=== PATIENT | female | born 1985 | race Caucasian/White ===

== ENCOUNTER 2020-03-30 20:49 | Inpatient (IN) | payer MEDICAID ==
[~2020-03-30] VITALS: Ht 160 cm; Wt 91.6 kg
[2020-03-30 22:31] VITALS: BP_SYST 139
[2020-03-30 23:17] LABS: BASOPHILS # (AUTO) 0.1 K/uL (0.0-0.2); BASOPHILS % (AUTO) 1.4 % (0.0-2.0); EOSINOPHILS # (AUTO) 0.1 K/uL (0.0-0.4); EOSINOPHILS % (AUTO) 1.6 % (0.0-4.0); HEMATOCRIT 28.3 % (36-48); HEMOGLOBIN 8.6 g/dL (12.0-16.0); LYMPHOCYTES # (AUTO) 1.1 K/uL (1.0-5.5); LYMPHOCYTES % (AUTO) 20.2 % (20.5-51.5); MEAN CORPUSCULAR HEMOGLOBIN 21 pg (27-31); MEAN CORPUSCULAR HGB CONC 30 % (32-36); MEAN CORPUSCULAR VOLUME 68 fL (79.0-98.0); MONOCYTES # (AUTO) 0.6 K/uL (0.0-1.0); NEUTROPHILS # (AUTO) 3.5 K/uL (1.8-7.7); NEUTROPHILS % (AUTO) 64.8 % (40.0-70.0); PLATELET COUNT (AUTO) 236 K/uL (130-430); RED BLOOD CELL COUNT(AUTO) 4.16 MIL/uL (4.2-6.2); RED CELL DISTRIBUTION WIDTH 21.5 % (9.0-15.0); WHITE BLOOD COUNT (AUTO) 5.4 K/uL (4.8-10.8)
--- NOTE | 2020-03-30 23:28 | NUR ---
Patient to ER HALLWAY BED to gown for evaluation. Side rails up.
[2020-03-30 23:32] LABS: CALCIUM 8.1 mg/dL (8.4-11.0); CREATININE 0.74 mg/dL (0.55-1.30); POTASSIUM 3.4 mmol/L (3.5-5.1)
[2020-03-30 23:43] LABS: ALBUMIN 3.6 g/dL (3.4-4.8); TOTAL BILIRUBIN 0.2 mg/dL (0.0-1.0)
--- NOTE | 2020-03-31 | NUR ---
Pt BIB ambulance C/O RT ankle and leg pain. Pt reports drinking at approximately 1600 this afternoon, walked to a bus stop and loss conciousness. Pt woke up with RT ankle and lef pain and swelling. Could not recall the injury. 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 Denies head, neck, or back pain, CP, SOB, fever or any other symptoms at this time.
--- NOTE | 2020-03-31 00:35 | NUR ---
PATIENT RETURNED FROM CT SCAN.
--- NOTE | 2020-03-31 01:30 | NUR ---
Pt is resting in [facility], no acute distress noted at this time. Will continue to monitor.
--- NOTE | 2020-03-31 02:30 | NUR ---
Pt is resting in [facility] [place] no acute distress noted at this time. Will continue to monitor.
[2020-03-31] MEDS ORDERED: KETOROLAC TROMETHAMINE 30 MG VIAL IVP ONE (02:45)
--- NOTE | 2020-03-31 03:10 | NUR ---
Pt has been medicated with morphine IVP for pain, will continue to monitor.
[2020-03-31] MEDS: MORPHINE 2 MG/ML INJ. SYRINGE IVP PRN ×4 (03:14→17:01)
[2020-03-31] MEDS ORDERED: MORPHINE 2 MG/ML INJ. SYRINGE IVP ONE (04:30)
[2020-03-31] MEDS: ONDANSETRON HCL 4 MG/2 ML VIAL IVP PRN ×2 (04:50→20:33)
--- NOTE | 2020-03-31 04:50 | NUR ---
Pt given additional Morphine IVP for pain, will continue to monitor.
--- NOTE | 2020-03-31 05:00 | NUR ---
Pt has been provided ice pack for comfort.
[2020-03-31] MEDS: D5/0.45 NS 1,000 ML IV SCH ×2 (06:10→23:39)
--- NOTE | 2020-03-31 06:30 | NUR ---
Pt is sleeping in bed, no acute distress noted at this time. Will continue to monitor.
--- NOTE | 2020-03-31 07:44 | NUR ---
Patient will be admitted to care of Dr. Avila. Admitted to med surg unit. Will go to room 101A. Belongings list completed. Complete and up to date summary report printed. SBAR report to be given at bedside with opportunity for questions.
--- NOTE | 2020-03-31 08:00 | NUR ---
Pt transferred to bed without incident, report given to Nahum for continuation of care.
[2020-03-31 08:27] VITALS: BP_SYST 125
--- NOTE | 2020-03-31 10:21 | NUR ---
Case mgt: Pt has no orthopedic consult ordered for ankle fx.Pt has [facility],--S/W fire marshal Chona, she will f/u with Dr. Avila re: ortho consult-- RN
[2020-03-31 10:31] VITALS: BP_SYST 132
[2020-03-31 12:06] VITALS: BP_SYST 144
--- NOTE | 2020-03-31 16:02 | NUR ---
Ortho consult called: for Dr. Bonilla, regarding fx, ordered by Dr. Avila, spoke with
[2020-03-31 16:40] VITALS: BP_SYST 125
--- NOTE | 2020-03-31 18:58 | NUR ---
CONSULT CALL TO DOCTOR TEODORO. SPOKE WITH KENNA. HANDOFF TO NIGHT TEAM REGISTERED NURSE. ABIGAIL PEREZ RN
--- NOTE | 2020-03-31 19:30 | NUR ---
Opening notes Received report. Patient is resting in bed, no signs of distress noted. Breathing even and unlabored. Patient complaining of pain to right leg. Will inform MD. IV patent and intact, infusing fluids. Call light with the patient. Safety precautions in place.
[2020-03-31 20:00] VITALS: BP_SYST 153
[2020-03-31] MEDS: MORPHINE 4 MG/ML INJ. SYRINGE IVP PRN (20:26)
--- NOTE | 2020-03-31 20:30 | NUR ---
Medications patient given prn pain medication. Educated the action and side effects of morphine. Patient verbalized understanding and tolerated well. No signs of adverse effects noted. No other needs. Call light with the patient. Safety precautions in place.
--- NOTE | 2020-03-31 22:00 | NUR ---
RN rounds Patient resting in bed, no signs of distress noted. Breathing even and unlabored, no complaints of pain. Patient assisted on to bed dowling. Patient urinated. Hygiene care provided. Ice packs applied to right ankle. No other needs. Call light with the patient. Safety precautions in place.
--- NOTE | 2020-04-01 | NUR ---
RN rounds Patient resting in bed, no signs of distress noted. Breathing even and unlabored. IVF infusing well. Patient requesting pain medication, will medicate patient. No other needs. Call light with the patient. Safety precautions in place.
[2020-04-01] MEDS: ONDANSETRON HCL 4 MG/2 ML VIAL IVP PRN ×2 (00:32→04:41)
[2020-04-01] MEDS: MORPHINE 4 MG/ML INJ. SYRINGE IVP PRN ×6 (00:33→21:32)
[2020-04-01 01:17] VITALS: BP_SYST 145
[2020-04-01] MEDS ORDERED: LORazepam 2 MG/ML VIAL IVP ONE (01:45)
--- NOTE | 2020-04-01 01:45 | NUR ---
Restless Patient feeling restless and anxious and requesting Ativan. Informed Dr. Avila. New orders received for Ativan 1 mg IV once. Ativan given. Educated the action and side effects of medication. Patient verbalized understanding and tolerated well. No adverse effects noted. Call light with the patient. safety precautions in place.
--- NOTE | 2020-04-01 04:45 | NUR ---
RN rounds Patient resting in bed, no signs of distress noted. Breathing even and unlabored. Patient states the Ativan helped her become less anxious, but did not help her sleep. Patient complains of pain. PRN Morphine given. Educated the action and side effects. Patient verbalized understanding and tolerated well. No adverse effects noted. MRSA swab collected and sent to lab. No other needs. call light with the patient. Safety precautions in place.
[2020-04-01 06:18] VITALS: BP_SYST 145
--- NOTE | 2020-04-01 06:46 | NUR ---
Closing notes Patient is resting in bed, no signs of distress noted. Breathing even and unlabored on room air. No complaints of pain. IV patent and intact, infusing fluids. Patient has been NPO since midnight. All needs met throughout the shift. Call light with the patient. Safety precautions in place. Will endorse care to day shift RN.
--- NOTE | 2020-04-01 07:25 | NUR ---
AM ROUNDS: PATIENT ON THE BED.AWAKE,ALERT AND ORIENTED X4. RIGHT FOOT ANKLE SWOLLEN,REDNESS WITH SMALL ABRASION,DRY.NOTHING BY MOUTH ORDERED. CALL LIGHT WITH IN REACH. BED LOCKED AT LOWEST POSITION. CONDITION GUARDED.
[2020-04-01 08:13] LABS: PROTHROMBIN TIME 10.5 SECS (9.5-12.5)
[2020-04-01 08:23] LABS: HCG,QUAL RESULT NEGATIVE (NEGATIVE)
[2020-04-01 08:27] LABS: BILIRUBIN,URINE NEGATIVE (NEGATIVE); BLOOD, URINE NEGATIVE (NEGATIVE); CLARITY/URINE CLEAR (CLEAR); COLOR,URINE YELLOW (YELLOW); GLUCOSE,URINE NEGATIVE (NEGATIVE); KETONES,URINE NEGATIVE (NEGATIVE); LEUKOCYTE ESTERASE ,URINE NEGATIVE (NEGATIVE); NITRITE, URINE NEGATIVE (NEGATIVE); PH,URINE 6.5 (5.0-8.0); PROTEIN URINE NEGATIVE (NEGATIVE); UROBILINOGEN,URINE 0.2 (0.2-1.0)
--- NOTE | 2020-04-01 08:50 | NUR ---
PAIN MEDS: C/O RIGHT ANKLE PAIN AND DUE IV PAIN MEDS GIVEN PER REQUEST. NO ADVERSE REACTIONS NOTED.
[2020-04-01 12:07] VITALS: BP_SYST 121
--- NOTE | 2020-04-01 12:45 | NUR ---
Pain Meds: C/o of right ankle pain and due iv morphine given per request. No problem.
[2020-04-01 16:03] VITALS: BP_SYST 122
--- NOTE | 2020-04-01 17:20 | NUR ---
ORTHO CALLED: SPOKE WITH DR VALERIO AND INFORMED HIM ,ADM ATTEMPTED TO FAXED SEAN BUT DID NOT GO THROUGH.PER ELDON ADM,COPY OF SEAN WILL BE PLACED AT THE PATIENT'S CHART TO BE SIGN BY ORTHO SURGEON AND DR VALERIO AGREED TO SIGN THE SEAN.
[2020-04-01] MEDS: D5/0.45 NS 1,000 ML IV SCH (17:25)
--- NOTE | 2020-04-01 19:00 | NUR ---
CLOSING NOTES: ENDORSED TO NIGHT NURSE PATIENT IN STABLE CONDITION. RIGHT ANKLE ELEVATED WITH PILLOW. IV FLUIDS RUNNING AT RIGHT AC INTACT. CALL LIGHT WITH IN REACH. BED LOCKED AT LOWEST POSITION. CONDITION GUARDED.
--- NOTE | 2020-04-01 19:20 | NUR ---
OPENING NOTE PATIENT AWAKE, AOX4. NO SIGNS OF RESPIRATORY DISTRESS NOTED. BREATHING EVEN AND UNLABORED. ON ROOM AIR TOLERATING WELL, O2 SATURATION OF 100%. DENIES PAIN AND DISCOMFORT AT THIS TIME BUT VERBALIZED THE NEED OF PAIN MEDICATION Q4H, HER FRACTURE IN LEGS NEEDS TO BE MANAGE. RIGHT ANKLE IS ELEVATED AT THIS TIME. IVF INFUSING WELL,PATENCY NOTED. CALL LIGHT WITHIN REACH, PATIENT WAS EDUCATED TO USE CALL LIGHT WHEN ASSISTANCE IS NEEDED, PATIENT VERBALIZED UNDERSTANDING. BED LOCKED AND IN LOWEST POSITION. BED ALARM ON. SAFETY PRECAUTIONS IN PLACE. WILL CONTINUE TO MONITOR PATIENT.
[2020-04-01 20:00] VITALS: BP_SYST 145
--- NOTE | 2020-04-01 21:21 | NUR ---
PAIN PATIENT VERBALIZED 7/10 ANKLE PAIN, PAIN MEDICATION GIVEN AT THIS TIME PER ORDER. NO SIGNS OF RESPIRATORY DISTRESS NOTED. IVF INFUSING WELL. CALL LIGHT WITHIN REACH. SAFETY PRECAUTION IN PLACE. WILL CONTINUE TO MONITOR PATIENT
--- NOTE | 2020-04-01 23:30 | NUR ---
RN ROUNDS/BED REEVES PATIENT ASSISTED TO BED REEVES, PATIENT VOIDED. NO SIGNS OF RESPIRATORY DISTRESS AND DISCOMFORT NOTED. DENIES PAIN AT THIS TIME. ON ROOM AIR, TOLERATING WELL. CALL LIGHT WITHIN REACH. SAFETY PRECAUTIONS IN PLACE. WILL CONTINUE TO MONITOR PATIENT
[2020-04-02 01:31] VITALS: BP_SYST 127
[2020-04-02] MEDS: MORPHINE 4 MG/ML INJ. SYRINGE IVP PRN ×3 (02:33→13:22)
--- NOTE | 2020-04-02 02:33 | NUR ---
PAIN PATIENT VERBALIZED 7/10 ANKLE PAIN, PAIN MEDICATION GIVEN AT THIS TIME PER ORDER. NO SIGNS OF RESPIRATORY DISTRESS NOTED. IVF INFUSING WELL. CALL LIGHT WITHIN REACH. SAFETY PRECAUTION IN PLACE. WILL CONTINUE TO MONITOR AND RE ASSESS PATIENT
--- NOTE | 2020-04-02 04:10 | NUR ---
RN ROUNDS PATIENT ASLEEP AT THIS TIME. NO SIGNS OF RESPIRATORY DISTRESS AND DISCOMFORT NOTED. BREATHING EVEN AND UNLABORED. ON ROOM AIR TOLERATING WELL. IVF INFUSING WELL. CALL LIGHT WITHIN REACH. SAFETY PRECAUTIONS IN PLACE. WILL CONTINUE TO MONITOR PATIENT.
--- NOTE | 2020-04-02 06:31 | NUR ---
CLOSING NOTE PATIENT ASLEEP AT THIS TIME. NO SIGNS OF RESPIRATORY DISTRESS AND DISCOMFORT NOTED. BREATHING EVEN AND UNLABORED. ON ROOM AIR TOLERATING WELL. IVF INFUSING WELL, PATENCY NOTED. RIGHT LEG WITH ICED PACKED. CALL LIGHT WITHIN REACH. BED LOCKED AND IN LOWEST POSITION. SAFETY PRECAUTIONS IN PLACE. ALL NEEDS MET THROUGHOUT THE SHIFT. WILL CONTINUE TO MONITOR UNTIL ENDORSE TO ONCOMING SHIFT NURSE FOR CONTINUITY OF CARE.
--- NOTE | 2020-04-02 06:53 | NUR ---
Nutrition Update [place] Scale 17 noted. Pt admitted for Syncope and Fracture Diet: Regular BMI: 35.8 kg/m2 RD to follow per nutrition care standards.
[2020-04-02 08:25] VITALS: BP_SYST 136
--- NOTE | 2020-04-02 08:35 | NUR ---
INITIAL ROUNDS Received pt AAOx4, no s/s resp distress, c/o pain 9 to right ankle-noted right foot on a temp splint with ice packs in place, right foot elevated. Pt given Morphine as ordered for pain 06/03. Plan of care for the day reviewed with pt-pt verbalized her understanding. Pain management, skin and safety discussed-teach back done. Pt made as comfortable as possible. Pt now eating her breakfast. Call light within reach.
--- NOTE | 2020-04-02 10:50 | NUR ---
PHYSICAL THERAPY ORDER WAS RECEIVED, HOWEVER, THE EVALUATION IS PENDING ARRIVAL OF THE CUSTOM SHORT LEG BRACE. DISCUSSED WITH THE PATIENT AND HER RN. DISCUSSED AND DEMONSTRATED USE OF THE FWW AND LLE TTWB PRECAUTION. PLAN: PERFORM THE EVALUATION ONCE THE ORTHOTIC IS RECEIVED. Addendum: 04/02/20 at 1248 by Bruno Ortiz PT CORRECTION: THE RLE TTWB PRECAUTION WAS DISCUSSED AND DEMONSTRATED.
[2020-04-02] MEDS: MORPHINE 2 MG/ML INJ. SYRINGE IVP PRN ×2 (11:01→19:43)
--- NOTE | 2020-04-02 11:18 | NUR ---
Discharge Planning: DCP faxed pt referral to [facility] p [phone]) DCP to follow up Addendum: 04/02/20 at 1246 by Bianka Morales DP DCP followed up with Al at [facility] p [phone])) she will try to have delivered before 3:00pm
[2020-04-02 12:13] VITALS: BP_SYST 131
[2020-04-02] MEDS: D5/0.45 NS 1,000 ML IV SCH (13:24)
--- NOTE | 2020-04-02 13:47 | NUR ---
Retail Sales Vitamin Consultant: met with pt. bedside to conduct a Social Work interview. TROUBLE LINEMAN met with pt. bedside. She was resting and stated she was in quite a bit of pain. She stated the morphin was not working and they had just put the boot on her right foot. Pt. stated she lives with her sisters and her father. They are a sense of support to her. She does not have a PCP. TROUBLE LINEMAN stated she can help her with this. TROUBLE LINEMAN asked her how she injured her foot. Pt. stated she is not certain. She had been working and asked to leave early as she was not feeling well. 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 She had been waiting at the bus stop for the bus. She stated she was feeling anxious and the next thing she knows, animal handler' were caring for her. ( Maybe she passed out/blacked out.) She said the lady who was waiting for the same bus told pt. she had begun to hyperventilate. She admitted to having issues with Alcohol. She said she has had two DUIs with the latest in 2008. Pt. stated the day she injured her foot. she had a rather large beer at lunch. (Her ETHO level was 168H). Pt. realizes she is self medicating. When asked, she stated some of her triggers are , Covid, the recent loss of her Grandmother ( and she could not even see her due to Covid), the loss of her car, her dad's health issues, self medication for the following mental health Dx. Pt. stated in 2018 when she had been suicidal, she went to [facility] and they [id number]'d her. She stated she did not like it and the next day, she was released. Then she went to [facility] where she was Dx. with Borderline personality, PTSD, depression and anxiety. Pt. stated she does not take any medication nor does she see anyone for therapy. When TROUBLE LINEMAN asked her what her plan was, she stated she would like to get into a alcohol treatment program, get back on meds and make time to get well. TROUBLE LINEMAN asked when was the last time she felt suicidal. Pt. stated it was ongoing. She stated the last time at about 2 weeks ago. She tells herself, "I'm ok if this bus takes me out" or " It's better if I am not around". Pt. sated she is good to speak to a psychiatrist to seek help. Pt. felt comfortable if TROUBLE LINEMAN shared info with her Rn. Hanh. TROUBLE LINEMAN consulted with Hanh who will as Dr. Avila what his thoughts are to request Dr. Holt consult. TROUBLE LINEMAN shared numerous resources with pt. including a mental health, to find a PCP and substance abuse resources. TROUBLE LINEMAN will remain available as needed.
[2020-04-02 16:10] VITALS: BP_SYST 127
--- NOTE | 2020-04-02 18:15 | NUR ---
ROUNDS/MD VISIT Pt resting quietly in bed with no c/o pain or discomfort. Pt seen by Dr. Avila-he stated pt will be discharged home tonight. Dr. Avila informed of the pt's conversation with the Rubber Thread Spooler early-he stated pt can see a psychiatrist as an ou patient due to not having current suicide thoughts. Call light within reach.
[2020-04-02 18:27] VITALS: BP_SYST 127
--- NOTE | 2020-04-02 19:00 | NUR ---
CLOSING NOTE Pt resting quietly in bed with no s/s resp distress, no c/o pain or discomfort. RLE in walking boot, elevated on a pillow. Pt aware she will be discharged home tonight. Needs met, call light within reach.
--- NOTE | 2020-04-02 21:00 | NUR ---
DISCHARGE TO HOME PATIENT AOX4. ON CUSTOM BRACE. AMBULATE WITH ASSISTIVE DEVICE. NO SIGNS OF RESPIRATORY DISTRESS AND DISCOMFORT NOTED. DENIES PAIN AND DISCOMFORT. BREATHING EVEN AND UNLABORED. ON ROOM AIR TOLERATING WELL, O2 SATURATION OF 100%. VITAL SIGNS TAKEN AND RECORDED, WNL. DISCHARGE PACKET/INSTRUCTION WAS GIVEN FOR HOME CARE AND FOLLOW UP APPOINTMENTS. PATIENT WAS EDUCATED WITH THE HOME MEDICATION WELL FOR ITS PURPOSE, SIDE EFFECT AND BENEFITS. PATIENT ABLE TO VERBALIZED UNDERSTANDING. IV CATHETER, REMOVED AND INTACT. ALL NEEDS MET. PATIENT WAS SAFELY ASSISTED BY PRIMARY NURSE VIA WHEELCHAIR TO PRIVATE CAR, DAD AND SISTER AT THE PRIVATE VEHICLE.
== END 2020-04-02 21:00 | disposition home or self-care (01) | DRG 342 ==
LOC: SED 20:49 → SMU 03-31 01:31
PROVIDERS: ADMIT Internal Medicine; ATTEND Internal Medicine
DX: S82.841A Displaced bimalleolar fracture of right lower leg, initial encounter for closed fracture (principal); S82.491A Other fracture of shaft of right fibula, initial encounter for closed fracture; S92.101A Unspecified fracture of right talus, initial encounter for closed fracture; S82.291A Other fracture of shaft of right tibia, initial encounter for closed fracture; E66.9 Obesity, unspecified; D50.9 Iron deficiency anemia, unspecified; X58.XXXA Exposure to other specified factors, initial encounter; Y93.89 Activity, other specified; Z88.8 Allergy status to other drugs, medicaments and biological substances; Y92.89 Other specified places as the place of occurrence of the external cause; Y99.8 Other external cause status
CPT/HCPCS: 36415; 73590-TC; 80053; 81003; 84702-TC; 84703; 85025; 85610-TC; 85730-TC; 86886; 86900; 86901; 87081; 94640; 96374; 96375; 99285; G0482; J1885; J2060; J2270; J2405

== ENCOUNTER 2021-02-11 23:07 | Emergency (ER) | payer MEDICAID ==
[~2021-02-11] VITALS: Ht 162.6 cm; Wt 97.5 kg
[2021-02-11 23:24] VITALS: BP_SYST 157
[2021-02-12] MEDS ORDERED: ONDANSETRON HCL 4 MG/2 ML VIAL IVP ONE (00:30)
[2021-02-12] MEDS ORDERED: MAG HYDROX/AL HYDROX/SIMETH 30 ML, DICYCLOMINE HCL 20 MG, LIDOCAINE VISCOUS 2% 15ML (PO... PO ONE ×3 (00:30)
[2021-02-12] MEDS ORDERED: LORazepam 2 MG/ML VIAL IVP ONE (00:30)
[2021-02-12] MEDS ORDERED: NACL 0.9% 1,000 ML IV ONE (00:30)
[2021-02-12] MEDS ORDERED: FOLIC ACID 1 MG, THIAMINE HCL 100 MG, MAGNESIUM SULFATE 1 GM, MVI 10 ML in NACL 0.9% 1,... IV ONE (00:30)
[2021-02-12 00:38] LABS: BILIRUBIN,URINE NEGATIVE (NEGATIVE); BLOOD, URINE 3+ (NEGATIVE); CLARITY/URINE CLEAR (CLEAR); COLOR,URINE YELLOW (YELLOW); GLUCOSE,URINE NEGATIVE (NEGATIVE); KETONES,URINE TRACE (NEGATIVE); LEUKOCYTE ESTERASE ,URINE TRACE (NEGATIVE); NITRITE, URINE NEGATIVE (NEGATIVE); PH,URINE 5.5 (5.0-8.0); PROTEIN URINE NEGATIVE (NEGATIVE); UROBILINOGEN,URINE 0.2 (0.2-1.0)
[2021-02-12 00:42] LABS: RED BLOOD CELL COUNT(AUTO) 4.91 MIL/uL (4.2-6.2); WHITE BLOOD COUNT (AUTO) 5.4 K/uL (4.8-10.8)
[2021-02-12 00:46] LABS: BASOPHILS # (AUTO) 0.1 K/uL (0.0-0.2); BASOPHILS % (AUTO) 2.2 % (0.0-2.0); EOSINOPHILS # (AUTO) 0.1 K/uL (0.0-0.4); EOSINOPHILS % (AUTO) 1.5 % (0.0-4.0); HEMATOCRIT 30.8 % (36-48); LYMPHOCYTES # (AUTO) 1.4 K/uL (1.0-5.5); LYMPHOCYTES % (AUTO) 26.1 % (20.5-51.5); MEAN CORPUSCULAR HEMOGLOBIN 18 pg (27-31); MEAN CORPUSCULAR HGB CONC 29 % (32-36); MEAN CORPUSCULAR VOLUME 63 fL (79.0-98.0); MONOCYTES # (AUTO) 0.5 K/uL (0.0-1.0); MONOCYTES % (AUTO) 9.6 % (1.7-9.3); NEUTROPHILS # (AUTO) 3.3 K/uL (1.8-7.7); NEUTROPHILS % (AUTO) 60.6 % (40.0-70.0); PLATELET COUNT (AUTO) 462 K/uL (130-430); RED CELL DISTRIBUTION WIDTH 21.4 % (9.0-15.0)
[2021-02-12 00:54] LABS: BACTERIA,URINE FEW /HPF (None Seen)
[2021-02-12 01:18] LABS: CALCIUM 8.7 mg/dL (8.4-11.0); CREATININE 0.76 mg/dL (0.55-1.30); POTASSIUM 3.6 mmol/L (3.5-5.1)
[2021-02-12 01:20] LABS: PROTHROMBIN TIME 10.4 SECS (9.5-12.5)
[2021-02-12 01:24] LABS: ALBUMIN 3.6 g/dL (3.4-4.8); TOTAL BILIRUBIN 0.6 mg/dL (0.0-1.0)
[2021-02-12] MEDS ORDERED: cefTRIAXone 1 GM in D5W 50 ML IV ONE (01:45)
[2021-02-12] MEDS ORDERED: CEFU250T85 PO (01:46)
[2021-02-12] MEDS ORDERED: PANT20TA2 PO (01:47)
[2021-02-12] MEDS ORDERED: cefTRIAXone 1 GM VIAL ONE (01:48)
[2021-02-12] MEDS ORDERED: ONDA-8 TL (02:42)
[2021-02-12] MEDS ORDERED: LIB10 PO (03:03)
[2021-02-12] MEDS ORDERED: LIB25 PO (03:06)
[2021-02-12 03:12] VITALS: BP_SYST 140
== END 2021-02-12 03:12 | disposition home or self-care (01) ==
LOC: SED 23:07
DX: K29.20 Alcoholic gastritis without bleeding (principal); F10.239 Alcohol dependence with withdrawal, unspecified; D53.9 Nutritional anemia, unspecified; Z88.8 Allergy status to other drugs, medicaments and biological substances; Z79.899 Other long term (current) drug therapy; Y90.0 Blood alcohol level of less than 20 mg/100 ml
CPT/HCPCS: 36415; 80053; 81000; 81025; 83605; 83690; 85025; 85610; 87040; 96361; 96365; 96375; 99285; G0482; J0696; J2001; J2060; J2405